=== PATIENT | female | born 1995 | race Hispanic/Latino ===

== ENCOUNTER 2021-04-24 15:05 | Emergency (ER) | payer OTHER ==
[~2021-04-24] VITALS: Ht 154.9 cm; Wt 62.7 kg
--- NOTE | 2021-04-24 15:50 | REP ---
INDICATION: trauma COMPARISON: None. TECHNIQUE: AP, lateral, bilateral oblique views. FINDINGS: Lateral swelling consistent with inversion injury. No acute fracture or dislocation. IMPRESSION: Swelling. No acute fracture or dislocation. <Electronically signed by Didier Rojas > 04/24/21 [id number]
--- NOTE | 2021-04-24 16:00 | REP ---
INDICATION: trauma COMPARISON: None. TECHNIQUE: AP and lateral views right tibia/fibula. FINDINGS: Swelling along the lateral ankle consistent with inversion injury. No acute fracture or dislocation. IMPRESSION: Lateral ankle swelling. No acute fracture or dislocation. <Electronically signed by Didier Rojas > 04/24/21 [id number]
[2021-04-24 16:14] LABS: BASO # 0.1 10^3/uL (0.0-0.2); BASO % 0.4 % (0.0-1.0); EOS # 0.1 10^3/uL (0.0-0.5); EOS % 0.9 % (0.0-3.0); HEMATOCRIT 40.9 % (36.0-47.0); HEMOGLOBIN 13.4 g/dl (12.0-15.5); LYMPH # 1.4 10^3/uL (1.5-5.0); LYMPH % 12.4 % (24.0-44.0); MEAN CORPUSCULAR HEMOGLOBIN 30.7 pg (27.0-33.0); MEAN CORPUSCULAR HGB CONC 32.8 g/dl (32.0-36.5); MEAN CORPUSCULAR VOLUME 93.8 fl (80.0-96.0); MONO # 0.8 10^3/uL (0.0-0.8); MONO % 6.7 % (2.0-8.0); NEUTROPHILS # 9.2 10^3/uL (1.5-8.5); NEUTROPHILS % 79.3 % (36.0-66.0); PLATELET COUNT, AUTOMATED 259 10^3/uL (150-450); RED BLOOD COUNT 4.36 10^6/uL (4.00-5.40); WHITE BLOOD COUNT 11.6 10^3/uL (4.0-10.0)
[2021-04-24 16:30] VITALS: BP 102/69
[2021-04-24 16:36] LABS: BLOOD UREA NITROGEN 17 MG/DL (7-18); CALCIUM LEVEL 8.6 MG/DL (8.5-10.1); CARBON DIOXIDE LEVEL 26 MEQ/L (21-32); CHLORIDE LEVEL 109 MEQ/L (98-107); CREATININE FOR GFR 0.74 MG/DL (0.55-1.30); GLOMERULAR FILTRATION RATE > 60.0 (>60); GLUCOSE, FASTING 94 MG/DL (70-100); POTASSIUM SERUM 3.8 MEQ/L (3.5-5.1); SODIUM LEVEL 140 MEQ/L (136-145)
== END 2021-04-24 17:19 | disposition home or self-care (01) ==
LOC: EDBD 15:05 → M ED 15:05
DX: S93.401A Sprain of unspecified ligament of right ankle, initial encounter (principal); X50.0XXA Overexertion from strenuous movement or load, initial encounter; Y92.830 Public park as the place of occurrence of the external cause; Y93.9 Activity, unspecified; Y99.9 Unspecified external cause status

== ENCOUNTER 2021-06-04 02:10 | Emergency (ER) | payer OTHER ==
[~2021-06-04] VITALS: Ht 152.4 cm; Wt 63.4 kg
[2021-06-04 03:18] LABS: HEMATOCRIT 40.5 % (36.0-47.0); HEMOGLOBIN 13.6 g/dl (12.0-15.5); MEAN CORPUSCULAR HEMOGLOBIN 31.1 pg (27.0-33.0); MEAN CORPUSCULAR HGB CONC 33.6 g/dl (32.0-36.5); MEAN CORPUSCULAR VOLUME 92.5 fl (80.0-96.0); PLATELET COUNT, AUTOMATED 242 10^3/uL (150-450); RED BLOOD COUNT 4.38 10^6/uL (4.00-5.40)
[2021-06-04 03:42] LABS: AMPHETAMINES LEVEL URINE NEGATIVE (NEGATIVE); BARBITURATES URINE NEGATIVE (NEGATIVE); BENZODIAZEPINES URINE NEGATIVE (NEGATIVE); CANNABINOIDS URINE NEGATIVE (NEGATIVE); COCAINE METABOLITE URINE NEGATIVE (NEGATIVE); METHADONE URINE NEGATIVE (NEGATIVE); OPIATES URINE NEGATIVE (NEGATIVE); PHENCYCLIDINE URINE NEGATIVE (NEGATIVE)
[2021-06-04 04:14] LABS: HCG, SERUM QUALITATIVE NEGATIVE (NEGATIVE)
[2021-06-04 04:19] LABS: ALBUMIN 3.8 GM/DL (3.2-5.2); ALT/SGPT 32 U/L (12-78); BILIRUBIN,DIRECT < 0.1 MG/DL (0.0-0.2); BILIRUBIN,TOTAL 0.3 MG/DL (0.2-1.0); BLOOD UREA NITROGEN 20 MG/DL (7-18); CALCIUM LEVEL 8.5 MG/DL (8.5-10.1); CARBON DIOXIDE LEVEL 26 MEQ/L (21-32); CHLORIDE LEVEL 108 MEQ/L (98-107); GLOMERULAR FILTRATION RATE > 60.0 (>60); GLUCOSE, FASTING 91 MG/DL (70-100); SALICYLATE LEVEL < 1.7 MG/DL (5.0-30.0); SODIUM LEVEL 140 MEQ/L (136-145); TOTAL PROTEIN 7.3 GM/DL (6.4-8.2)
[2021-06-04 04:20] LABS: ACETAMINOPHEN LEVEL < 2.0 UG/ML (10.0-30.0); ETHYL ALCOHOL (ETHANOL) < 0.003 % (0.000-0.010)
[2021-06-04] MEDS ORDERED: HOME MED LIST COMPLETE! XX SCH (06:20)
[2021-06-04 10:43] LABS: RSV AMPLIFICATION NEGATIVE (NEGATIVE)
[2021-06-04 17:50] VITALS: BP 107/68
--- NOTE | 2021-06-05 17:08 | ECGEPIP ---
[facility] - ED Test Date: 2021-06-04 Pat Name: SHERINE CARREON Department: Room: - Gender: Female [employer]pper: maximino : 1995 Requested By: DUNIA Mendoza Order Number: [id number] Reading MD: Shay Chavarria Measurements Intervals [place] Rate: 74 P: 46 [place]: 154 QRS: 29 QRSD: 74 T: 36 QT: 438 QTc: 486 Interpretive Statements Sinus rhythm with occasional premature ventricular complexes Prolonged QTc interval Comparison tracing not on file Electronically Signed on 06-05-2021 17:07:45 EDT by Shay Chavarria
== END 2021-06-04 17:52 ==
LOC: M ED 02:10
DX: F32.9 Major depressive disorder, single episode, unspecified (principal)

== ENCOUNTER 2021-09-30 00:13 | Emergency (ER) | payer OTHER ==
[~2021-09-30] VITALS: Ht 152.4 cm; Wt 63.6 kg
[2021-09-30 02:07] LABS: HEMATOCRIT 42.4 % (36.0-47.0); HEMOGLOBIN 14.3 g/dl (12.0-15.5); MEAN CORPUSCULAR HEMOGLOBIN 30.5 pg (27.0-33.0); MEAN CORPUSCULAR HGB CONC 33.7 g/dl (32.0-36.5); MEAN CORPUSCULAR VOLUME 90.4 fl (80.0-96.0); PLATELET COUNT, AUTOMATED 300 10^3/uL (150-450); RED BLOOD COUNT 4.69 10^6/uL (4.00-5.40); WHITE BLOOD COUNT 5.5 10^3/uL (4.0-10.0)
[2021-09-30 02:27] LABS: HCG, SERUM QUALITATIVE NEGATIVE (NEGATIVE)
[2021-09-30 02:45] LABS: ACETAMINOPHEN LEVEL < 2.0 UG/ML (10.0-30.0); ALT/SGPT 60 U/L (12-78); BILIRUBIN,DIRECT < 0.1 MG/DL (0.0-0.2); BILIRUBIN,TOTAL 0.2 MG/DL (0.2-1.0); BLOOD UREA NITROGEN 11 MG/DL (7-18); CALCIUM LEVEL 8.7 MG/DL (8.5-10.1); CARBON DIOXIDE LEVEL 26 MEQ/L (21-32); CHLORIDE LEVEL 114 MEQ/L (98-107); CREATININE FOR GFR 0.69 MG/DL (0.55-1.30); ETHYL ALCOHOL (ETHANOL) 0.198 % (0.000-0.010); GLOMERULAR FILTRATION RATE > 60.0 (>60); GLUCOSE, FASTING 99 MG/DL (70-100); POTASSIUM SERUM 3.9 MEQ/L (3.5-5.1); SALICYLATE LEVEL < 1.7 MG/DL (5.0-30.0); SODIUM LEVEL 147 MEQ/L (136-145); THYROID STIMULATING HORMONE 0.444 uIU/ML (0.358-3.740); TOTAL PROTEIN 7.9 GM/DL (6.4-8.2)
[2021-09-30 11:21] LABS: AMPHETAMINES LEVEL URINE NEGATIVE (NEGATIVE); BARBITURATES URINE NEGATIVE (NEGATIVE); BENZODIAZEPINES URINE NEGATIVE (NEGATIVE); CANNABINOIDS URINE NEGATIVE (NEGATIVE); COCAINE METABOLITE URINE NEGATIVE (NEGATIVE); METHADONE URINE NEGATIVE (NEGATIVE); OPIATES URINE NEGATIVE (NEGATIVE); PHENCYCLIDINE URINE NEGATIVE (NEGATIVE)
[2021-09-30 14:01] VITALS: BP 117/62
== END 2021-09-30 14:02 | disposition home or self-care (01) ==
LOC: M ED 00:13
DX: F10.129 Alcohol abuse with intoxication, unspecified (principal); F43.10 Post-traumatic stress disorder, unspecified; F32.A Depression, unspecified

== ENCOUNTER 2021-11-30 09:53 | Emergency (ER) | payer OTHER ==
[~2021-11-30] VITALS: Ht 152.4 cm; Wt 63.4 kg
[2021-11-30 09:54] VITALS: BP 130/77
[2021-11-30] MEDS ORDERED: ACETAMINOPHEN 500 MG TAB PO ONE (12:00)
[2021-11-30] MEDS ORDERED: NS 1,000 ML IV ONE (12:00)
[2021-11-30] MEDS ORDERED: METOCLOPRAMIDE INJ 10MG/2ML VIAL (J2765 PER 1) IV ONE (12:00)
[2021-11-30] MEDS ORDERED: KETOROLAC 30 MG/ML 1ML VIAL IV ONE (14:00)
[2021-11-30] MEDS ORDERED: ONDA4TAB6 PO (14:15)
== END 2021-11-30 15:49 | disposition home or self-care (01) ==
LOC: M ED 09:53
DX: S06.0X0A Concussion without loss of consciousness, initial encounter (principal); W00.0XXA Fall on same level due to ice and snow, initial encounter; R11.2 Nausea with vomiting, unspecified; R42 Dizziness and giddiness; Y92.9 Unspecified place or not applicable; Y93.9 Activity, unspecified; Y99.0 Civilian activity done for income or pay
CPT/HCPCS: 70450; 72125; 84702; 96361; 96374; 96375; 99283; J1885; J2765